=== PATIENT | female | born 1980 | race African-American/Black ===

== ENCOUNTER 2016-06-07 01:09 | Emergency (ER) | payer MEDICAID ==
[2016-06-07 02:14] LABS: APPEARANCE,URINE CLEAR; BILIRUBIN,URINE NEGATIVE (NEGATIVE); GLUCOSE, URINE NEGATIVE (NEGATIVE); KETONES,URINE NEGATIVE (NEGATIVE); LEUKOCYTE ESTERASE,URINE NEGATIVE (NEGATIVE); NITRITE,URINE NEGATIVE (NEGATIVE); PROTEIN,URINE NEGATIVE (NEGATIVE); URINE SPECIFIC GRAVITY 1.029
[2016-06-07] MEDS ORDERED: LIDOCAINE 1% INJ-PF (10 MG/ML) 30 ML SDV INFIL ONE (02:27)
[2016-06-07] MEDS ORDERED: AZITHROMYCIN 250 MG TABLET PO ONE (02:27)
[2016-06-07] MEDS ORDERED: CEFTRIAXONE INJ 250 MG VIAL IM ONE (02:27)
--- NOTE | 2016-06-07 02:33 | ER Document Report ---
ED General - General Chief Complaint: Abdominal Pain Stated Complaint: ABDOMINAL PAIN,LEFT KNEE PAIN Notes: Patient is a 35-year-old female who presents 4 days of constant, throbbing, aching suprapubic abdominal pain. Pain is worsened by urinating. Nothing improves the pain. States that she became more concerned about this discomfort after having unprotected sexual intercourse and is concerned that she may aquired a sexually transmitted infection. States that she began looking online about the symptoms of gonorrhea and chlamydia and this is what prompted her come to the emergency department for evaluation tonight. States that she's had these infections in the past and has required treatment. She has not had any vaginal bleeding and states her vaginal discharge appears to be in its normal. She has not seen her primary care doctor regarding today's concerns. Prior surgical history 3 sections. TRAVEL OUTSIDE OF THE [place] IN LAST 30 DAYS: No - Related Data Allergies/Adverse Reactions: No Known Allergies Allergy (Verified 06/07/16 01:17) Past Medical History - General Information source: Patient - Social History Smoking Status: Never Smoker Frequency of alcohol use: None Drug Abuse: None Lives with: Alone Family History: Hypertension. denies: CAD Patient has suicidal ideation: No Patient has homicidal ideation: No - Past Medical History Cardiac Medical History: Reports: Hx Hypertension Neurological Medical History: Reports: Hx Migraine Renal/ Medical History: Denies: Hx Peritoneal Dialysis Past Surgical History: Reports: Hx Appendectomy, Hx Section - x3 - Immunizations Hx Diphtheria, Pertussis, Tetanus Vaccination: Yes Review of Systems - Review of Systems Notes: Constitutional: Negative for fever. HENT: Negative for sore throat. Eyes: Negative for visual changes. Cardiovascular: Negative for chest pain. Respiratory: Negative for shortness of breath. Gastrointestinal: Negative for abdominal pain, vomiting or diarrhea. Genitourinary: Positive for dysuria and vaginal itching Musculoskeletal: Negative for back pain. Skin: Negative for rash. Neurological: Negative for headaches, weakness or numbness. 10 point ROS negative except as marked above and in HPI. Physical Exam - Vital signs Vitals: Temp Pulse Resp BP Pulse Ox 98.1 F 79 16 142/91 H 99 06/07/16 01:12 06/07/16 01:12 06/07/16 01:12 06/07/16 01:12 06/07/16 01:12 Interpretation: Hypertensive Notes: PHYSICAL EXAMINATION: GENERAL: Well-appearing, well-nourished and in no acute distress. HEAD: Atraumatic, normocephalic. EYES: Pupils equal round and reactive to light, extraocular movements intact, sclera anicteric, conjunctiva are normal. ENT: nares patent, oropharynx clear without exudates. Moist mucous membranes. NECK: Normal range of motion, supple without lymphadenopathy LUNGS: Breath sounds clear to auscultation bilaterally and equal. No wheezes rales or rhonchi. HEART: Regular rate and rhythm without murmurs ABDOMEN: Soft, nontender, normoactive bowel sounds. No guarding, no rebound. No masses appreciated. Pelvic: No cervical motion tenderness, lesions or discharge. No adnexal tenderness. Mild suprapubic tenderness to palpation EXTREMITIES: Normal range of motion, no pitting or edema. No cyanosis. NEUROLOGICAL: No focal neurological deficits. Moves all extremities spontaneously and on command. PSYCH: Normal mood, normal affect. SKIN: Warm, Dry, normal turgor, no rashes or lesions noted. Course - Re-evaluation Re-evalutation: 06/07/16 02:28 Presentation of suprapubic abdominal pain abdominal exam is benign without any focal tenderness. Vitals are normal at the time of arrival. Laboratories are unremarkable without evidence of cystitis, . Patient is overall very well in appearance. Based on clinical history and examination I do not suspect an acute appendicitis, tubo-ovarian abscess, related pathology, pelvic inflammatory disease, mesenteric ischemia, or pyelonephritis. Pelvic exam without cervical motion tenderness or focal adnexal tenderness. Patient has requested empiric treatment for gonorrhea and chlamydia. I have instructed her to follow-up as an outpatient with the health department for further sexual transmitted infection testing. Guarding patient's leg pain on the left: This is chronic and patient states is unchanged night she thought she would mention all she was here. This pain has been present for over 2 years. I've instructed her to follow-up with her primary care doctor regarding this concern as she has already had a venous Doppler study done as well as multiple x-rays for this complaint in this emergency department in the past year. - Vital Signs Vital signs: Temp Pulse Resp BP Pulse Ox 98.1 F 79 16 142/91 H 99 06/07/16 01:12 06/07/16 01:12 06/07/16 01:12 06/07/16 01:12 06/07/16 01:12 - Laboratory Laboratory results interpreted by me: 06/07/16 01:50 Urine Urobilinogen 2.0 H Discharge - Discharge Clinical Impression: Suprapubic abdominal pain, Vaginal discharge Condition: Good Disposition: HOME, SELF-CARE Additional Instructions: Your urinalysis is normal and you are not . You need to use protection every time you have sex. Failure to do so can result in transmission of infections or unintended . You have been treated for an sexually transmitted infection (STI) today. All of your partners should be tested and treated as they are also likely to be infected. Please return if you develop abdominal pain, fever, persistent vomiting, or any other symptoms that are concerning to you. Please follow-up at the local health department for STI testing. Address: [address] [place] [address] Hours: Fri-Fri 8am-4pm 12p-4p Fri 8a-4p
[2016-06-07 03:58] LABS: CHLAM PCR NOT DETECTED (NOT DETECT)
[2016-06-07 04:08] VITALS: BP 137/86
== END 2016-06-07 03:50 | disposition home or self-care (01) ==
LOC: ER 01:09
DX: R10.30 Lower abdominal pain, unspecified (principal); N89.8 Other specified noninflammatory disorders of vagina; M25.562 Pain in left knee; I10 Essential (primary) hypertension
CPT/HCPCS: 99284; 96372; 87210; 81025; 81001; 87491; 87591; Q0144; J3490; J0696

== ENCOUNTER 2017-03-03 13:18 | Emergency (ER) | payer MEDICAID ==
[2017-03-03 13:27] VITALS: BP 144/91
== END 2017-03-03 14:41 | disposition left against medical advice (07) ==
LOC: ER 13:18
DX: Z53.21 Procedure and treatment not carried out due to patient leaving prior to being seen by health care provider (principal)

== ENCOUNTER 2019-11-26 18:33 | Emergency (ER) | payer MEDICAID ==
--- NOTE | 2019-11-26 21:01 | ER Document Report ---
ED Medical Screen (RME) - General Chief Complaint: Vaginal Bleeding Stated Complaint: VAGINAL BLEEDING/10WKS PREG Time Seen by Provider: 11/26/19 20:51 Notes: Patient is a who presents emergency department with a chief complaint of vaginal bleeding. Patient reports that she was seen at the [facility] center 2 weeks ago and confirmed that she had a within the uterus. She reports that yesterday developing some vaginal bleeding. Over the past 24 hours she has had intermittent lower abdominal cramping with bright red vaginal bleeding. States there is no clots. States that a couple months ago she also had a yeast infection which she did not take the treatment for properly. Patient states there is a vaginal odor. TRAVEL OUTSIDE OF THE [place] IN LAST 30 DAYS: No - Related Data Allergies/Adverse Reactions: No Known Allergies Allergy (Verified 11/26/19 20:49) Past Medical History - Past Medical History Cardiac Medical History: Reports: Hx Hypertension Neurological Medical History: Reports: Hx Migraine Renal/ Medical History: Denies: Hx Peritoneal Dialysis Past Surgical History: Reports: Hx Appendectomy, Hx Section - x3 - Immunizations Hx Diphtheria, Pertussis, Tetanus Vaccination: Yes Physical Exam - Vital signs Vitals: Temp Pulse Resp BP Pulse Ox 98.4 F 55 L 16 158/92 H 99 11/26/19 19:08 11/26/19 19:08 11/26/19 19:08 11/26/19 19:08 11/26/19 19:08 Course - Re-evaluation Re-evalutation: 11/26/19 21:00 Patient is not tachycardic or hypotensive. Will obtain basic labs including a RhoGam work-up due to and vaginal bleeding as well as an ultrasound. Patient verbalized understanding. I have greeted and performed a rapid initial assessment of this patient. A comprehensive ED assessment and evaluation of the patient, analysis of test results and completion of the medical decision making process will be conducted by additional ED providers. - Vital Signs Vital signs: Temp Pulse Resp BP Pulse Ox 98.4 F 55 L 16 158/92 H 99 11/26/19 19:08 11/26/19 19:08 11/26/19 19:08 11/26/19 19:08 11/26/19 19:08
--- NOTE | 2019-11-26 21:49 | RADIOLOGY REPORT (SQ) ---
US PELVIS HISTORY: Early . Pelvic pain. COMPARISON: None. TECHNIQUE: Grayscale, color Doppler, and spectral Doppler ultrasound images of the pelvis were obtained. FINDINGS: There is an intrauterine gestational sac with a yolk sac and pole visualized. The crown-rump length measures 2.1 cm corresponding to 8 weeks 6 days. The heart rate is 160 bpm. No subchorionic hematoma. The ovaries are normal in size and contain normal color Doppler blood flow. Cervix is 2.5 cm and is closed. No free fluid. IMPRESSION: Single live IUP with estimated gestational age 8 weeks 6 days.
[2019-11-26 22:12] LABS: APPEARANCE,URINE SLIGHTLY-CLOUDY; BILIRUBIN,URINE NEGATIVE (NEGATIVE); COLOR,URINE YELLOW; GLUCOSE, URINE NEGATIVE (NEGATIVE); KETONES,URINE NEGATIVE (NEGATIVE); LEUKOCYTE ESTERASE,URINE NEGATIVE (NEGATIVE); NITRITE,URINE NEGATIVE (NEGATIVE); PROTEIN,URINE NEGATIVE (NEGATIVE); URINE SPECIFIC GRAVITY 1.017; UROBILINOGEN,URINE NEGATIVE mg/dL (<2.0)
[2019-11-26 22:49] LABS: ABSOLUTE EOSINOPHILS # (AUTO) 0.1 10^3/uL (0.0-0.6); ABSOLUTE LYMPHOCYTES (AUTO) 2.5 10^3/uL (0.5-4.7); ABSOLUTE MONOCYTES (AUTO) 0.5 10^3/uL (0.1-1.4); ABSOLUTE NEUT (AUTO) 4.3 10^3/uL (1.7-8.2); BASOPHILS % (AUTO) 0.3 % (0-2); EOSINOPHILS % (AUTO) 1.5 % (0-6); HEMATOCRIT 36.9 % (36.0-47.0); HEMOGLOBIN 12.4 g/dL (12.0-15.5); LYMPHOCYTES % (AUTO) 33.4 % (13-45); MEAN CORPUSCULAR HEMOGLOBIN 25.8 pg (27.0-33.4); MEAN CORPUSCULAR HGB CONC 33.5 g/dL (32.0-36.0); MEAN CORPUSCULAR VOLUME 77 fl (80-97); MONOCYTES % (AUTO) 6.7 % (3-13); PLATELET COUNT 340 10^3/uL (150-450); RED BLOOD COUNT 4.78 10^6/uL (3.72-5.28); RED CELL DISTRIBUTION WIDTH 17.4 % (11.5-14.0); SEGMENTED NEUTROPHILS % (AUTO) 58.1 % (42-78); TOTAL CELLS COUNTED % (AUTO) 100 %; WHITE BLOOD COUNT 7.4 10^3/uL (4.0-10.5)
[2019-11-26 23:16] LABS: ALBUMIN 4.6 g/dL (3.5-5.0); ALKALINE PHOSPHATASE 57 U/L (38-126); ANION GAP 10 (5-19); ASPARTATE AMINO TRANSFERASE 22 U/L (14-36); BILIRUBIN,DIRECT 0.3 mg/dL (0.0-0.4); BILIRUBIN,TOTAL 0.3 mg/dL (0.2-1.3); BLOOD UREA NITROGEN 9 mg/dL (7-20); CALCIUM 10.3 mg/dL (8.4-10.2); CARBON DIOXIDE 23 mmol/L (22-30); CHLORIDE 102 mmol/L (98-107); GLUCOSE 97 mg/dL (75-110); POTASSIUM 3.6 mmol/L (3.6-5.0)
--- NOTE | 2019-11-27 00:30 | ER Document Report ---
ED GI/ - General Chief Complaint: Vag Bleeding, +preg <12wks Stated Complaint: VAGINAL BLEEDING/10WKS PREG Time Seen by Provider: 11/26/19 20:51 [facility] [[facility] - 11/29/19 Notes: Patient is a G6, [id number] female presents emergency department with a chief complaint of vaginal bleeding. Patient states that she is about 8 weeks . Patient states that yesterday she noticed some blood when she wiped with toilet paper. Patient denies having any recent sex. Patient states that she thought she has been having some white discharge. Patient states that she was treated for a yeast infection, but states that she is not sure whether or not she took the medication correctly. Patient denies any large clots. TRAVEL OUTSIDE OF THE [place] IN LAST 30 DAYS: No - Related Data Allergies/Adverse Reactions: No Known Allergies Allergy (Verified 11/26/19 20:49) Past Medical History - Social History Smoking Status: Former Smoker Frequency of alcohol use: None Drug Abuse: Marijuana Family History: Hypertension. denies: CAD Patient has homicidal ideation: No - Past Medical History Cardiac Medical History: Reports: Hx Hypertension Neurological Medical History: Reports: Hx Migraine Renal/ Medical History: Denies: Hx Peritoneal Dialysis Past Surgical History: Reports: Hx Appendectomy, Hx Section - x3 - Immunizations Hx Diphtheria, Pertussis, Tetanus Vaccination: Yes Review of Systems - Review of Systems Notes: REVIEW OF SYSTEMS: CONSTITUTIONAL : Denies recent illness. Denies recent unintentional weight loss. Denies fever, chills, or sweats. EENT: Denies eye, ear, throat, or mouth pain, discharge, or symptoms. Denies nasal or sinus congestion. CARDIOVASCULAR: Denies chest pain. RESPIRATORY: Denies shortness of breath, cough, congestion, difficulty breathing, or wheezing. GASTROINTESTINAL: Denies nausea, vomiting, and diarrhea. Denies abdominal pain. Denies constipation. GENITOURINARY: Denies difficulty urinating, burning, blood in urine, urgency or frequency. FEMALE GENITOURINARY: See HPI. MUSCULOSKELETAL: Denies neck and back pain. Denies joint pain or swelling. SKIN: Denies rash, itchiness, or lesions HEMATOLOGIC : Denies easy bruising or bleeding. LYMPHATIC: Denies swollen, painful, enlarged glands. NEUROLOGICAL: Denies no numbness or tingling denies weakness. Denies headache. Denies altered mental status. Denies alteration in speech. PSYCHIATRIC: Denies stress, anxiety, alteration in sleep patterns, or depression. All other systems reviewed and negative. Physical Exam - Vital signs Vitals: Temp Pulse Resp BP Pulse Ox 98.4 F 55 L 16 158/92 H 99 11/26/19 19:08 11/26/19 19:08 11/26/19 19:08 11/26/19 19:08 11/26/19 19:08 - Notes Notes: PHYSICAL EXAMINATION: GENERAL: Appears well, healthy, well-nourished, no acute distress. HEAD: Normocephalic, atraumatic. EYES: PERRL, conjunctiva normal, all extraocular movements intact, sclera nonicteric ENT: Moist mucous membranes. NECK: Supple, no noticeable swelling, redness, rash. Normal range of motion. LUNGS: Equal breath sounds bilaterally and clear to auscultation. No wheezes rales or rhonchi. CARDIOVASCULAR: S1-S2, regular rate, regular rhythm. Radial pulses 2+, normal. ABDOMEN: Normoactive bowel sounds. Soft, nontender, no guarding, no rebound tenderness, and no masses palpated. EXTREMITIES: Normal strength and range of motion, no pitting or edema. No cyanosis. NEUROLOGICAL: Moves all extremities upon command. Strength 5/5 in all extremities. PSYCH: Normal mood, normal affect. SKIN: Warm, dry. No rash, lesions, ulcerations noted. Normal skin turgor. [employer] REPAIRER: Course - Re-evaluation Re-evalutation: 11/27/19 00:30 Hematology is unremarkable. Chemistries are also unremarkable, other than a slightly elevated calcium. hCG is 182,228. Consistent with her 8-week and 6- day noted on her ultrasound. There was no subchorionic hemorrhage noted. Cervix is closed. hCG is positive on urine and urinalysis is unremarkable. Pelvic exam will be done with only swabs. 11/27/19 00:52 Pelvic exam done with REBECCA Manzano at bedside. Small amount of red blood noted. No large clots noted. Wet mount gonorrhea and chlamydia will be sent. 11/27/19 01:50 Wet mount shows 3+ bacteria and 3+ epithelial cells. No yeast or trichomonas noted. Gonorrhea and Chlamydia are pending. Patient states that she does not have any concern for gonorrhea or chlamydia. We will start the patient on transvaginal metronidazole. She is in agreement with this plan. Follow-up precautions were given. Verbal discharge instructions were given to the patient. They verbalized understanding. They are stable for discharge. - Vital Signs Vital signs: Temp Pulse Resp BP Pulse Ox 98.2 F 59 L 17 142/83 H 100 11/26/19 22:14 11/27/19 02:06 11/27/19 02:06 11/27/19 02:06 11/27/19 02:06 - Laboratory Result Diagrams: 11/26/19 22:21 11/26/19 22:21 Laboratory results interpreted by me: 11/26/19 11/26/19 11/26/19 21:55 22:21 22:21 MCV 77 L MCH 25.8 L RDW 17.4 H Sodium 134.8 L Creatinine 0.51 L Calcium 10.3 H Beta HCG, Quant 937200.00 H Urine HCG, Qual POSITIVE H Discharge - Discharge Clinical Impression: Bacterial vaginosis in , Vaginal bleeding Condition: Stable Disposition: HOME, SELF-CARE Additional Instructions: You were seen today in the emergency department for vaginal bleeding. Your ultrasound was normal. Start metronidazole tomorrow. Follow-up with [facility] on Friday. Do not have sex or apply anything other than medication in your vagina. Return to the emergency department if you have large clots. Prescriptions: Metronidazole [Metrogel 0.75% Vaginal Gel] 5 applic VG QHS 5 Days #1 tube Forms: Return to Work Referrals: [facility] [Provider Group] - 11/29/19
[2019-11-27 01:16] LABS: BACTERIA (WET MOUNT) 3+ BACTERIA SEEN; EPITHELIALS (WET MOUNT) 3+ EPITHELIALS SEEN; RBCS (WET MOUNT) 2+ RBCS SEEN; T.VAGINALIS (WET MOUNT) NO TRICHOMONAS SEEN; WBCS (WET MOUNT) 1+ WBCS SEEN; YEAST (WET MOUNT) NO YEAST SEEN
[2019-11-27 02:07] VITALS: BP 142/83
[2019-11-27 02:31] LABS: CHLAM PCR NOT DETECTED (NOT DETECT)
== END 2019-11-27 02:07 | disposition home or self-care (01) ==
LOC: ER 18:33
DX: O23.591 Infection of other part of genital tract in pregnancy, first trimester (principal); B96.89 Other specified bacterial agents as the cause of diseases classified elsewhere; O20.9 Hemorrhage in early pregnancy, unspecified; Z3A.08 8 weeks gestation of pregnancy
CPT/HCPCS: 36415; 76817; 80053; 81001; 81025; 84702; 85025; 86900; 86901; 87210; 87491; 87591; 93976; 99284